=== PATIENT | male | born 1950 | race African-American/Black ===

== ENCOUNTER 2017-01-07 17:11 | Emergency (ER) | payer MEDICARE ==
[~2017-01-07] VITALS: Ht 177.8 cm; Wt 87.0 kg
[2017-01-07] MEDS ORDERED: SODIUM CHLORIDE 0.9% 1,000ML IVBOLUS ONE (17:30)
[2017-01-07 17:54] LABS: PH, VENOUS 7.391 pH (7.320-7.420)
[2017-01-07 18:07] LABS: BLOOD UREA NITROGEN 14 mg/dL (7-18)
[2017-01-07 18:19] LABS: ASPARTATE AMINO TRANSFERASE 9 U/L (15-37)
[2017-01-07 18:36] LABS: DIFF TOTAL CELLS COUNTED 100 CELL DIFF
[2017-01-07 18:39] LABS: VERIFY COUNTS? YES
[2017-01-07] MEDS ORDERED: METF10002 PO (19:59)
[2017-01-07] MEDS ORDERED: GLIP10TA13 PO (19:59)
[2017-01-07] MEDS ORDERED: LISI1TAB5 PO (19:59)
[2017-01-07] MEDS ORDERED: INSULIN REGULAR 100 UNITS/ML, 3ML VIAL SQ-INSULIN ONE (21:30)
[2017-01-07] MEDS ORDERED: INSULIN SINGLE DOSE, ER SQ-INSULIN ONE (21:31)
[2017-01-07 21:46] VITALS: BP 150/91
== END 2017-01-07 21:52 | disposition home or self-care (01) ==
LOC: ED 21:04
DX: E11.65 Type 2 diabetes mellitus with hyperglycemia (principal); I10 Essential (primary) hypertension
CPT/HCPCS: 36415; 80053; 81003; 82010; 82803; 82962; 85025; 96360; 96361; 96372; 99285; J7030